=== PATIENT | male | born 1930 | race Caucasian/White ===

== ENCOUNTER → 2017-09-20 | Outpatient (CLI) | payer MEDICARE, OTHER ==
[2017-09-20] MEDS: GADOBUTROL 7.5 MMOL/7.5 ML VIAL IV (11:22)
== END | disposition home or self-care (01) ==
LOC: KCIC MRI 10:11
DX: I63.8 Other cerebral infarction (principal)
CPT/HCPCS: 70553; A9585